=== PATIENT | male | born 1945 | race Caucasian/White ===

== ENCOUNTER 2016-11-28 12:02 | Emergency (ER) | payer MEDICARE, BC, OTHER ==
[~2016-11-28] VITALS: Ht 188 cm; Wt 85.0 kg
[~2016-11-28 12:02] MED LIST: BAYE325T3 PO; CALC600T34 PO; HYDR-2768 PO; LUMI0.01 EACH EYE; POTA20IN3 PO
[2016-11-28 12:36] VITALS: BP 172/93; PULSE 67; RESP 16; TEMP 98.1; O2SAT 97
[2016-11-28 12:55] LABS: BLOOD, URINE LARGE (NEG); GLUCOSE,URINE NEG (NEG); KETONE, URINE NEG (NEG); NITRITE,URINE NEG (NEG)
--- NOTE | 2016-11-28 12:59 | PD ---
HPI Chief Complaint: Complaint Time Seen by Provider: 12:58 Travel History International Travel<30 days: No Contact w/Intl Traveler<30days: No Traveled to known affect area: No History of Present Illness HPI 71-year-old male with history of BPH, multiple medical issues, presents to the ER today because he has noticed red blood in his urine since yesterday. He has been having some burning on urination. He denies any abdominal pains, nausea, vomiting, fevers, or any other symptoms. Modifying Factors: None Associated Signs & Symptoms: Blood in the urine Risk Factors: History of BPH PFSH Past Medical History Hx Anticoagulant Therapy: No Cancer: No Cardiac Catheterization: Yes Cardiovascular Problems: No High Cholesterol: Yes Chemotherapy: No Cerebrovascular Accident: No Diabetes: No Diminished Hearing: No Endocrine: No Gastrointestinal Disorders: Yes (C-DIFF [id number]) Glaucoma: Yes Genitourinary: Yes (BPH) Hypertension: Yes Musculoskeletal: No Neurologic: No Psychiatric: No Reproductive: No Respiratory: No Immunizations Current: No Past Surgical History Genitourinary Surgery: Yes (TURP X 3-LAST ONE 05/07/13) Tonsillectomy: Yes Other Surgery: Yes (BACK SURGERY) Social History Alcohol Use: Yes (SOCIALLY 3-4X PER WEEK) Tobacco Use: No Substance Use: No Allergies-Medications (Allergen,Severity, Reaction): Coded Allergies: Erythromycin (Verified Allergy, Severe, RASH, 11/28/16) Iodine (Verified Allergy, Severe, RESPIRATORY ARREST, 11/28/16) Sulfa (Verified Allergy, Severe, RASH, 11/28/16) Uncoded Allergies: STATINS (Allergy, Intermediate, EXTREMETY PAIN, 08/29/11) Reported Meds & Prescriptions Reported Meds & Active Scripts Active Reported Potassium Chloride inj (Potassium Chloride) 20 Meq Tab 1 Tab PO DAILY Lumigan (Bimatoprost) 0.01 % Susana 1 Drop EACH EYE DAILY IN THE EVENING Janie Aspirin (Aspirin) 325 Mg Tab 325 Mg PO DAILY Hctz (Hydrochlorothiazide) 25 Mg Tab 25 Mg PO DAILY Review of Systems Except as stated in HPI: all other systems reviewed are Neg Physical Exam Narrative GENERAL: Elderly white male, well-developed, awake, alert, oriented 3, not in acute distress. SKIN: Warm and dry. HEAD: Atraumatic. Normocephalic. EYES: Pupils equal and round. No scleral icterus. No injection or drainage. ENT: No nasal bleeding or discharge. Mucous membranes pink and moist. NECK: Trachea midline. No JVD. CARDIOVASCULAR: Regular rate and rhythm. No murmur appreciated. RESPIRATORY: No accessory muscle use. Clear to auscultation. Breath sounds equal bilaterally. GASTROINTESTINAL: Abdomen soft, non-tender, nondistended. Hepatic and splenic margins not palpable. MUSCULOSKELETAL: No obvious deformities. No clubbing. No cyanosis. No edema. NEUROLOGICAL: Awake and alert. No obvious cranial nerve deficits. Motor grossly within normal limits. Normal speech. PSYCHIATRIC: Appropriate mood and affect; insight and judgment normal. Data Data Last Documented VS Vital Signs Date Time Temp Pulse Resp B/P Pulse Ox O2 Delivery O2 Flow Rate FiO2 11/28/16 12:36 98.1 67 16 172/93 97 Orders Urinalysis - C+S If Indicated (11/28/16 12:39) Labs Laboratory Tests Test 11/28/16 12:35 Urine Collection Type VOIDED Urine Color PINK Urine Turbidity HAZY Urine pH 6.0 Urine Specific [place] 1.011 Urine Protein NEG mg/dL Urine Glucose (UA) NEG mg/dL Urine Ketones NEG mg/dL Urine Occult Blood LARGE Urine Nitrite NEG Urine Bilirubin NEG Urine Leukocyte Esterase TRACE Urine RBC 100-200 /hpf Urine WBC 0-2 /hpf Urine Bacteria NONE /hpf Microscopic Urinalysis Comment CULT NOT INDICATED Urine Collection Time 1235 MDM Medical Decision Making Medical Screen Exam Complete: Yes Emergency Medical Condition: Yes Medical Record Reviewed: Yes Interpretation(s) Laboratory Tests Test 11/28/16 12:35 Urine Color PINK (YELLW/STRAW) Urine Turbidity HAZY (CLEAR) Urine Occult Blood LARGE (NEG) Urine Leukocyte Esterase TRACE (NEG) Urine RBC 100-200 /hpf (0-3) Differential Diagnosis Blood in the urineUTI versus hematuria Narrative Course UA shows no signs of UTI. He is able to urinate on his own at this point. This appears to be plain hematuria which clears up after he urinates for a while. Case was briefly discussed with Dr. Day who states that the patient can follow-up with him as an outpatient. No further suggestions for immediate treatment. At this point, my plan would be to release the patient with follow- up to Dr. lopez. Return for any worsening in bleeding, or new symptoms as needed. The plan has been discussed with him and he states understanding. Diagnosis Primary Impression: Hematuria Referrals: Juventino Day MD Disposition: 01 DISCHARGE HOME Condition: Stable Chris Tse MD Nov 28, 2016 12:59
[2016-11-28 13:00] LABS: METHOD OF COLLECTION VOIDED
[2016-11-28 13:01] LABS: URINE COLOR PINK (YELLW/STRAW)
[2016-11-28 13:04] LABS: COMMENT (UR) CULT NOT INDICATED; CULTURE IF INDICATED CULT NOT INDICATED; RBC, URINE 100-200 /hpf (0-3); WBC, URINE 0-2 /hpf (0-5)
[2016-11-28 13:50] VITALS: BP 200/94; PULSE 70; RESP 16; O2SAT 100
== END 2016-11-28 14:13 | disposition home or self-care (01) ==
LOC: PHED 12:02
DX: R31.9 Hematuria, unspecified (principal); R30.0 Dysuria; E78.00 Pure hypercholesterolemia, unspecified; I10 Essential (primary) hypertension
CPT/HCPCS: 81001; 99283

== ENCOUNTER 2017-04-28 02:48 | Emergency (ER) | payer MEDICARE, BC, OTHER ==
[~2017-04-28] VITALS: Ht 185.4 cm; Wt 94.0 kg
[~2017-04-28 02:48] MED LIST changes: -CALC600T34 PO
[2017-04-28] MEDS ORDERED: LUMI0.01 RIGHT EYE (03:02)
[2017-04-28] MEDS ORDERED: CYAN1TAB24 (03:02)
[2017-04-28] MEDS ORDERED: HYDR25TA5 PO (03:02)
[2017-04-28] MEDS ORDERED: ASPI325T PO (03:02)
[2017-04-28] MEDS ORDERED: POTA99TA4 (03:02)
[2017-04-28 03:24] VITALS: BP 221/101; PULSE 57; RESP 18; TEMP 98.4; O2SAT 97
[2017-04-28 03:29] LABS: AUTOMATED NEUTROPHIL # 3.6 TH/MM3 (1.8-7.7); BASOPHIL % 0.6 % (0.0-2.0); EOSINOPHIL # 0.3 TH/MM3 (0-0.4); EOSINOPHIL % 4.9 % (0.0-4.0); HEMATOCRIT 40.8 % (39.0-51.0); HEMO FLAGS DIFF FINAL; LYMPH % 31.1 % (9.0-44.0); LYMPHOCYTE # 2.1 TH/MM3 (1.0-4.8); MEAN CELL VOLUME 89.8 FL (80.0-100.0); MEAN CORPUSCULAR HEMOGLOBIN 30.5 PG (27.0-34.0); MONO % 8.3 % (0.0-8.0); NEUT % 55.1 % (16.0-70.0); PLATELET COUNT 169 TH/MM3 (150-450); RED BLOOD COUNT 4.55 MIL/MM3 (4.50-5.90); WHITE BLOOD COUNT 6.6 TH/MM3 (4.0-11.0)
[2017-04-28 03:52] VITALS: BP 221/98; PULSE 56; RESP 17; O2SAT 97
[2017-04-28 04:01] LABS: CHLORIDE 94 MEQ/L (98-107); POTASSIUM 3.4 MEQ/L (3.5-5.1); SODIUM (NA) 131 MEQ/L (136-145)
[2017-04-28 04:04] LABS: ANION GAP 9 MEQ/L (5-15); BICARBONATE 28.3 MEQ/L (21.0-32.0); BLOOD UREA NITROGEN 12 MG/DL (7-18)
[2017-04-28 04:07] LABS: GLOMERULAR FILTRATION RATE 81 ML/MIN (>89)
[2017-04-28 04:10] LABS: CREATINE KINASE 141 U/L (39-308)
--- NOTE | 2017-04-28 04:17 | RADRPT ---
EXAM DATE/TIME: 04/28/2017 03:31 [facility] COMPARISON: CHEST SINGLE AP, November 16, 2015, 1:18. INDICATIONS : Chest and bilateral arm pain. MEDICAL HISTORY : Aortic stenosis. SURGICAL HISTORY : Cardiac catheterization ENCOUNTER: Initial ACUITY: 1 day PAIN SCORE: 2/10 LOCATION: Bilateral chest FINDINGS: PA and lateral views of the chest demonstrate the lungs to be symmetrically aerated without evidence of mass, infiltrate or effusion. The cardiomediastinal contours are unremarkable. Osseous structure s are intact. CONCLUSION: No acute disease. Win Raman MD on April 28, 2017 at 4:15 Board Certified Radiologist. This report was verified electronically.
--- NOTE | 2017-04-28 04:17 | PD ---
HPI Chief Complaint: Chest Pain Time Seen by Provider: 04:02 Travel History International Travel<30 days: No Contact w/Intl Traveler<30days: No Traveled to known affect area: No History of Present Illness HPI The patient is a 71-year-old male with a history of heart disease, aortic stenosis, who complains of bilateral arm pain beginning about 2:00 this morning. There is no nausea, shortness of breath, diaphoresis or radiation of the pain and the pain is in both arms and goes down the bilateral chest. The pain is constant but is fading away, it is almost gone in the left arm completely. The patient states it is a dull weight type of pain. The patient has had an angiogram that was normal 9 months ago except for the aortic stenosis. The aortic stenosis does not cause syncope and the patient will apparently get this operated on in August of this year. The patient does not smoke. He is followed by Dr. Desouza and Dr. Desouza states that his heart is normal except for his aortic stenosis. 6 months ago he had a normal nuclear stress test. He states his blood pressure goes up over [address] Desouza's office and it has gone up over 200 here in this emergency department. The blood pressure is fairly normal at home in a relaxed setting. He states this happens consistently. His only antihypertensive is hydrochlorothiazide. PFSH Past Medical History Hx Anticoagulant Therapy: No Cancer: No Cardiac Catheterization: Yes Cardiovascular Problems: Yes (AORTIC VALVE STENOSIS) High Cholesterol: Yes Chemotherapy: No Cerebrovascular Accident: No Diabetes: No Diminished Hearing: No Endocrine: No Gastrointestinal Disorders: Yes (C-DIFF [id number]) Glaucoma: Yes (LASER TO LEFT EYE; DROPS ONLY NEEDED IN RIGHT EYE) Genitourinary: Yes (BPH) Hypertension: Yes Medical other: Yes (SEPSIS 2015) Musculoskeletal: No Neurologic: No Psychiatric: No Reproductive: No Respiratory: No Immunizations Current: No Tetanus Vaccination: > 5 Years Influenza Vaccination: No Past Surgical History Genitourinary Surgery: Yes (TURP X 3-LAST ONE 05/07/13) Tonsillectomy: Yes Other Surgery: Yes (BACK SURGERY) Social History Alcohol Use: Yes (DAILY; 2 DRINKS) Tobacco Use: No Substance Use: No Allergies-Medications (Allergen,Severity, Reaction): Coded Allergies: Erythromycin (Verified Allergy, Severe, RASH, 04/28/17) Iodine (Verified Allergy, Severe, RESPIRATORY ARREST, 04/28/17) Sulfa (Verified Allergy, Severe, RASH, 04/28/17) Uncoded Allergies: STATINS (Allergy, Intermediate, EXTREMETY PAIN, 08/29/11) Reported Meds & Prescriptions Reported Meds & Active Scripts Active Reported B12 (Cyanocobalamin) 1,000 Mcg Tab Potassium 99 Mg Tablet Hydrochlorothiazide 25 Mg Tab 25 Mg PO DAILY Lumigan Opth Drops (Bimatoprost) 0.01% Soln 1 Drop RIGHT EYE HS Aspirin 325 Mg Tab 325 Mg PO ONCE PRN Review of Systems Except as stated in HPI: all other systems reviewed are Neg Physical Exam Narrative GENERAL: The patient is alert, oriented 3 and slight apparent distress with his arms/chest discomfort. His vital signs show blood pressure 221/101 but otherwise normal. SKIN: Focused skin assessment warm/dry. HEAD: Atraumatic. Normocephalic. EYES: Pupils equal and round. No scleral icterus. No injection or drainage. ENT: No nasal bleeding or discharge. Mucous membranes pink and moist. NECK: Trachea midline. No JVD. CARDIOVASCULAR: Regular rate and rhythm. No murmur appreciated. I cannot reproduce the pain by pressing on the chest wall or arm. RESPIRATORY: No accessory muscle use. Clear to auscultation. Breath sounds equal bilaterally. GASTROINTESTINAL: Abdomen soft, non-tender, nondistended. Hepatic and splenic margins not palpable. I cannot reproduce the pain by pressing on the abdomen. MUSCULOSKELETAL: No obvious deformities. No clubbing. No cyanosis. No edema. NEUROLOGICAL: Awake and alert. No obvious cranial nerve deficits. Motor grossly within normal limits. Normal speech. PSYCHIATRIC: Appropriate mood and affect; insight and judgment normal. Data Data Last Documented VS Vital Signs Date Time Temp Pulse Resp B/P Pulse Ox O2 Delivery O2 Flow Rate FiO2 04/28/17 05:10 53 17 240/112 98 Room Air 04/28/17 03:24 98.4 Orders Electrocardiogram (04/28/17 03:14) Complete Blood Count With Diff (04/28/17 03:14) Basic Metabolic Panel (Bmp) (04/28/17 03:14) Ckmb (Isoenzyme) Profile (04/28/17 03:14) Troponin I (04/28/17 03:14) Iv Access Insert/Monitor (04/28/17 03:14) Ecg Monitoring (04/28/17 03:14) Oxygen Administration (04/28/17 03:14) Oximetry (04/28/17 03:14) Chest, Pa & Lat (04/28/17 03:14) CKMB (04/28/17 03:19) CKMB% (04/28/17 03:19) Labs Laboratory Tests Test 04/28/17 03:19 White Blood Count 6.6 TH/MM3 Red Blood Count 4.55 MIL/MM3 Hemoglobin 13.9 GM/DL Hematocrit 40.8 % Mean Corpuscular Volume 89.8 FL Mean Corpuscular Hemoglobin 30.5 PG Mean Corpuscular Hemoglobin 34.0 % Concent Red Cell Distribution Width 12.0 % Platelet Count 169 TH/MM3 Mean Platelet Volume 9.0 FL Neutrophils (%) (Auto) 55.1 % Lymphocytes (%) (Auto) 31.1 % Monocytes (%) (Auto) 8.3 % Eosinophils (%) (Auto) 4.9 % Basophils (%) (Auto) 0.6 % Neutrophils # (Auto) 3.6 TH/MM3 Lymphocytes # (Auto) 2.1 TH/MM3 Monocytes # (Auto) 0.6 TH/MM3 Eosinophils # (Auto) 0.3 TH/MM3 Basophils # (Auto) 0.0 TH/MM3 CBC Comment DIFF FINAL Differential Comment Sodium Level 131 MEQ/L Potassium Level 3.4 MEQ/L Chloride Level 94 MEQ/L Carbon Dioxide Level 28.3 MEQ/L Anion Gap 9 MEQ/L Blood Urea Nitrogen 12 MG/DL Creatinine 0.92 MG/DL Estimat Glomerular Filtration 81 ML/MIN Rate Random Glucose 104 MG/DL Calcium Level 8.8 MG/DL Total Creatine Kinase 141 U/L Creatine Kinase MB 3.5 NG/ML Troponin I LESS THAN 0.02 NG/ML MDM Medical Decision Making Medical Screen Exam Complete: Yes Emergency Medical Condition: Yes Medical Record Reviewed: Yes Interpretation(s) The CBC is normal. The basic metabolic profile shows a sodium of 131, potassium 3.4, GFR of 81 but is otherwise unremarkable. The cardiac enzymes are normal. The chest x-ray shows no acute disease. Differential Diagnosis Acute coronary syndrome, chest pain of unknown etiology, pneumothorax, pleurisy , esophageal pain, gastrointestinal pain, chest wall pain, atypical chest pain, pneumonia, pleural effusion Narrative Course The patient has had a normal coronary angiogram 9 months ago. 6 months ago he had a normal stress test. This appears to be atypical chest pain. The cardiac enzymes are normal tonight and the patient is essentially pain-free at this time. He was given nothing for pain. The chest x-ray is normal and does not suggest any cause for the pain. There is no evidence of any inflammation such as pneumonia with a normal white count either. Diagnosis Primary Impression: Atypical chest pain Additional Instructions: As we discussed, follow-up with Dr. Desouza on . Take the results of what we did david to his office when you see him. Disposition: 01 DISCHARGE HOME Condition: Stable Hussein Ramos MD Apr 28, 2017 04:17
[2017-04-28 04:23] LABS: CKMB 3.5 NG/ML (0.5-3.6)
[2017-04-28 05:10] VITALS: BP 240/112; PULSE 53; RESP 17; O2SAT 98
--- NOTE | 2017-04-28 12:24 | EKG ---
Date Performed: 04/28/2017 Time Performed: 02:53:39 PTAGE: 71 years EKG: Sinus rhythm MARKED LEFT AXIS DEVIATION MINIMAL VOLTAGE CRITERIA FOR LVH, CONSIDER NORMAL VARIANT ABNORMAL ECG PREVIOUS TRACING : 11/16/2015 00.52 Compared to prior tracing no significant change DOCTOR: Donny Roberto Interpretating Date/Time 04/28/2017 12:22:03
== END 2017-04-28 05:28 | disposition home or self-care (01) ==
LOC: PHED 02:48
DX: R07.89 Other chest pain (principal); M79.601 Pain in right arm; M79.602 Pain in left arm; I10 Essential (primary) hypertension; R94.31 Abnormal electrocardiogram [ECG] [EKG]; E78.00 Pure hypercholesterolemia, unspecified; Z86.79 Personal history of other diseases of the circulatory system; Z87.19 Personal history of other diseases of the digestive system; Z86.69 Personal history of other diseases of the nervous system and sense organs; Z87.448 Personal history of other diseases of urinary system
CPT/HCPCS: 71020; 80048; 82550; 82552; 84484; 85025; 93005; 99284